=== PATIENT | male | born 1960 | race American Indian/Alaskan Native ===

== ENCOUNTER → 2020-09-10 | Outpatient (CLI) | payer BC ==
[~2020-09-10] MED LIST: ACYCLOVIR800 MG PO; AMOCLA875 PO; ARTIFICIAL TEAR15 M2 OP; CLOT10 MT; DEXA1L PO; GINGER ROOT550 MG PO; IMBRUVICA280 MG PO; LOPE2C PO; Loratadine10 MG PO; PENVK500 PO; PROBIOTIC; Prednisone10 MG PO; SIRO1 PO; TURMERIC500 M2 PO
[2020-09-12 15:42] LABS: CORONAVIRUS (COVID19) CSH-NRL Negative (Negative)
== END | disposition home or self-care (01) ==
LOC: LAB SHORT 11:11
PROVIDERS: Chiropractor
DX: B34.9 Viral infection, unspecified (principal); Z20.828 Contact with and (suspected) exposure to other viral communicable diseases
CPT/HCPCS: U0003

== ENCOUNTER 2022-04-15 10:07 | Inpatient (IN) | payer BC ==
[~2022-04-15] VITALS: Ht 162.6 cm; Wt 60.6 kg
[2022-04-15 10:33] LABS: Hematocrit 30.3 % (37.0-53.0); Hemoglobin 9.3 g/dL (13.5-17.5); Mean Corpuscular HGB 22.7 pg (26.0-34.0); Mean Corpuscular HGB Conc 30.7 g/dL (31.5-36.5); Mean Corpuscular Volume 74 fL (80-100); Mean Platelet Volume 10.3 fL (9.1-12.4); NRBC ABSOLUTE 0.18 K/mm3 (0.00-0.02); NRBC Auto 0.9 /100 WBC (0.0-0.2); Platelet Count 177 K/mm3 (150-400); RDW Coefficient Variation 21.2 % (11.7-14.2); RDW Standard Deviation 53.6 fL (35.1-46.3); White Blood Cell Count 20.01 K/mm3 (4.00-11.30)
[2022-04-15 11:03] LABS: BAND PERCENT MAN 51 % (0-8); BASOPHILS PERCENT MAN 0 % (0-2); EOSINOPHILS PERCENT MAN 0 % (0-6); LYMPHOCYTES PERCENT MAN 2 % (21-46); MONOCYTES PERCENT MAN 2 % (4-13); MYELOCYTE PERCENT MAN 1 % (0-0); SEG NEUTROPHILS PERCENT MAN 44 % (41-73); TOTAL CELLS COUNTED 100
[2022-04-15 11:18] LABS: Influenza A, PCR NEGATIVE (NEGATIVE); Influenza B, PCR NEGATIVE (NEGATIVE); Resp Syncytial Virus, PCR NEGATIVE (NEGATIVE); SARS-Cov-2 (COVID-19) PCR, MMC NEGATIVE (NEGATIVE)
[2022-04-15 11:20] LABS: Albumin, Blood 2.1 g/dL (3.4-5.0); Albumin/Globulin Ratio 0.7 (0.8-1.8); Bilirubin, Total 0.6 mg/dL (0.1-1.0); Bun/Creatinine Ratio 13.1 (12.0-20.0); Calcium, Blood 8.6 mg/dL (8.5-10.1); Creatinine, Blood 2.14 mg/dL (0.60-1.20); Globulin, Blood 3.1 g/dL (2.2-4.0); Potassium, Blood 4.1 mmol/L (3.5-5.5); Total Protein, Blood 5.2 g/dL (6.4-8.2)
[2022-04-15] MEDS ORDERED: SULFAMETHOXAZO1 EAC1 PO (12:16)
[2022-04-15] MEDS ORDERED: IMBRUVICA420 MG PO (12:16)
[2022-04-15] MEDS ORDERED: Prednisone2.5 MG PO (12:17)
[2022-04-15 12:18] LABS: Source, Urine Foley catheter
[2022-04-15 12:23] LABS: Appearance, Urine Clear (Clear); Bilirubin, Urine Neg (Neg); Blood, Urine 2+ (Neg); Color, Urine Yellow (P-Yellow); Glucose Qualitative, Urine Neg (Neg); Ketones, Urine Neg (Neg); Leukocyte Esterase, Urine 1+ (Neg); Nitrite, Urine Neg (Neg); Protein, Urine 2+ (Neg); Specific Gravity, Urine 1.015 (1.003-1.022); Urobilinogen, Urine NORM (Normal)
[2022-04-15 12:30] LABS: Amorphous Light (0-Heavy); Bacteria Few /hpf; Red Blood Cells, Urine 0-2 /hpf (0-2); Squamous Epithelial Cells Rare /hpf (Few); White Blood Cells, Urine 0-2 /hpf (0-5)
[2022-04-15 13:08] LABS: Base Excess Venous -9.8 mmol/L; Bicarbonate Venous 16.9 mmol/L (24.0-30.0); PCO2 Venous 40.9 mmHg (38-42); pH Blood Venous 7.24 (7.34-7.37)
[2022-04-15 13:34] LABS: Percent Saturation 3.4 % (20.0-50.0)
--- NOTE | 2022-04-15 14:35 | NUR ---
ADMIT PT ARRIVED TO ICU 13 VIA BED AT 1330. PT IS ALERT AND ORIENTED. PT ON BIPAP 09/16, FIO2 45%. PT HYPOTENSIVE. LEVOPHED INFUSING THROUGH PERIPHERAL IV AT 5 MCG/MIN. PT COMPLAINS OF ANXIETY RELATED TO BIPAP AT THIS TIME. LEE IN PLACE WITH CLEAR YELLOW OUTPUT NOTED. WILL CONTINUE TO MONITOR.
--- NOTE | 2022-04-15 17:49 | NUR ---
SHIFT SUMMARY PT REMAINS ALERT AND ORIENTED WHEN AWAKE. PT WITH PERIODS OF FORGETFULNESS AT TIMES. ANSWERS MOST QUESTIONS APPROPRIATELY. PT ON 10L O2 NC AT THIS TIME. SPO2 >90%. PICC PLACED TO LASHELL DUE TO CONTINUED NEED FOR LEVOPHED. LEVOPHED INFUSING AT 6 MCG/MIN AT THIS TIME. LEE REMAINS IN PLACE WITH CLEAR YELLOW OUTPUT NOTED. PT TURNS SELF IN BED INDEPENDENTLY. PT WITH OCCASIONAL NONPRODUCTIVE COUGH. PT DENIES PAIN OR SOB AT THIS TIME. DR JONES DISCUSSED CODE STATUS WITH PT THIS EVENING. PT ELECTS TO BE LIMITED CODE WITH INTUBATION ONLY. WILL CONTINUE TO MONITOR AND REPORT OFF TO ONCOMING RN.
[2022-04-15 18:07] LABS: Hematocrit 31.1 % (37.0-53.0); Hemoglobin 9.5 g/dL (13.5-17.5)
--- NOTE | 2022-04-15 19:15 | NUR ---
PT REPORT RECEIVED, SAFETY CHECK COMPLETED, ASSUMED PT CARE.
[2022-04-15 21:15] LABS: C DIFFICILE DNA NEGATIVE (Negative)
[2022-04-16 03:58] LABS: Hematocrit 30.6 % (37.0-53.0); Hemoglobin 9.6 g/dL (13.5-17.5); Mean Corpuscular HGB 22.8 pg (26.0-34.0); Mean Corpuscular HGB Conc 31.4 g/dL (31.5-36.5); Mean Corpuscular Volume 73 fL (80-100); NRBC ABSOLUTE 0.13 K/mm3 (0.00-0.02); NRBC Auto 0.3 /100 WBC (0.0-0.2); Platelet Count 152 K/mm3 (150-400); RDW Coefficient Variation 20.9 % (11.7-14.2); RDW Standard Deviation 52.3 fL (35.1-46.3); Red Blood Cell Count 4.21 M/mm3 (4.30-5.90); White Blood Cell Count 39.75 K/mm3 (4.00-11.30)
[2022-04-16 04:00] LABS: Mean Platelet Volume 10.7 fL (9.1-12.4)
[2022-04-16 04:16] LABS: Albumin/Globulin Ratio 0.6 (0.8-1.8); Bilirubin, Total 0.5 mg/dL (0.1-1.0); Bun/Creatinine Ratio 19.3 (12.0-20.0); Calcium, Blood 8.4 mg/dL (8.5-10.1); Creatinine, Blood 1.19 mg/dL (0.60-1.20); Globulin, Blood 3.3 g/dL (2.2-4.0); Magnesium, Blood 1.9 mg/dL (1.6-2.4); Potassium, Blood 4.1 mmol/L (3.5-5.5); Total Protein, Blood 5.3 g/dL (6.4-8.2)
[2022-04-16 04:34] LABS: BAND PERCENT MAN 31 % (0-8); BASOPHILS PERCENT MAN 0 % (0-2); EOSINOPHILS PERCENT MAN 0 % (0-6); LYMPHOCYTES ABSOLUTE MAN 0.39 K/mm3 (0.84-5.20); LYMPHOCYTES PERCENT MAN 1 % (21-46); METAMYELOCYTE ABSOLUTE MAN 0.39 K/mm3 (0.00-0.00); METAMYELOCYTE PERCENT MAN 1 % (0-0); MONOCYTES ABSOLUTE MAN 0.79 K/mm3 (0.16-1.47); MONOCYTES PERCENT MAN 2 % (4-13); MYELOCYTE ABSOLUTE MAN 0.39 K/mm3 (0.00-0.00); MYELOCYTE PERCENT MAN 1 % (0-0); NEUTROPHILS ABSOLUTE MAN 37.76 K/mm3 (1.96-9.15); SEG NEUTROPHILS PERCENT MAN 64 % (41-73); TOTAL CELLS COUNTED 100
--- NOTE | 2022-04-16 06:30 | NUR ---
SHIFT SUMMARY: PT DROSY BUT ALERT TO VOICE AND ABLE TO FOLLOW COMMANDS AND TURN HIMSELF THROUGH OUT THE NIGHT. PT'S SPO2 INITIALLY STABLE ON 8 LPM VIA STANDARD NC ON SAFETY CHECK, 02 FLOW RATE WAS DECREASED TO 6 LPM AND HUMIDAFIER WAS ADDED TO NC. PT HAD VERY GOOD URINE OUT PUT FROM THE CATHETER OVER NIGHT AND BS IMPROVED OVER NIGHT TO CLEAR/DIMINISHED THROUGHOUT. O2 ULTIMATELY DECREASED TO 4LPM AND SPO2 REMAINED STABLE AT THAT FLOW RATE. PT ABLE TO STAND AT BEDSIDE AND IS STRONG ON HIS FEET. LEVOPHED INCREASED THROUGH OUT THE NIGHT TO 10 MCG/MINUTE DUE TO HYPOTENSION WHILE THE PT IS SLEEPING. PT DROWSY THROUGH THE NIGHT BUT ABLE TO WAKE TO VOICE, FOLLOW COMMANDS AND TURN HIMSELF IN BED. 3200 ML OUT OF THE CATHETER OVER NIGHT.
--- NOTE | 2022-04-16 07:39 | NUR ---
report from Pierce foote rn, no distress with patient, patietn sleeping, easily wakes to touch, alert and oriented x4, call light with in reach, patient ready to eat breakfast
--- NOTE | 2022-04-16 18:03 | NUR ---
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
--- NOTE | 2022-04-16 19:15 | NUR ---
PT REPORT RECEIVED, SAFETY CHECK COMPLETED, ASSUMED PT CARE. PT IS AAOX4 AND STATES THAT HE IS OVER ALL FEELING MUCH BETTER TODAY. LEVOPHED IS INFUSING AT 7 MCG/MINUTE.
[2022-04-17 03:37] LABS: Hematocrit 26.7 % (37.0-53.0); Hemoglobin 8.4 g/dL (13.5-17.5); Mean Corpuscular HGB 22.6 pg (26.0-34.0); Mean Corpuscular HGB Conc 31.5 g/dL (31.5-36.5); Mean Corpuscular Volume 72 fL (80-100); NRBC ABSOLUTE 0.16 K/mm3 (0.00-0.02); NRBC Auto 0.4 /100 WBC (0.0-0.2); Platelet Count 122 K/mm3 (150-400); RDW Coefficient Variation 20.7 % (11.7-14.2); Red Blood Cell Count 3.72 M/mm3 (4.30-5.90); White Blood Cell Count 41.14 K/mm3 (4.00-11.30)
[2022-04-17 03:51] LABS: Albumin, Blood 1.8 g/dL (3.4-5.0); Anion Gap 5 mmol/L (6-16); Blood Urea Nitrogen 26 mg/dL (8-24); Bun/Creatinine Ratio 25.5 (12.0-20.0); CO2, Blood 28 mmol/L (21-32); Chloride, Blood 110 mmol/L (98-108); Creatinine, Blood 1.02 mg/dL (0.60-1.20); Glomerular Filtration Rate 84 (60-); Glucose, Blood 109 mg/dL (70-99); Phosphorus, Blood 3.2 mg/dL (2.5-4.9); Potassium, Blood 3.1 mmol/L (3.5-5.5); Sodium, Blood 143 mmol/L (136-145)
--- NOTE | 2022-04-17 06:19 | NUR ---
SHIFT SUMMARY: PT ALERT AND ORIENTED X4 AND WHEN ASSLEEP HE IS ABLE TO WAKE TO VOICE. PT HAS BEEN ABLE TO SLEEP FOR THE MAJORITY OF THE NIGHT. LEVOPHED GRADUALLY DECREASED AND UTIMATLY PUT INTO STANDBY AROUND 0550. SPO2 REMAINS STABLE ON 4LPM VIAN NC. ORDERS RECEIVED FOR POTASSIUM REPLACEMENT. BP SLIGHTLY MORE SOFT WITHOUT LEVOPHED, BUT MAP STILL >65. GOOD URINE OUT PUT OVER NIGHT WITH 12OOML OUT OF THE LEE.
--- NOTE | 2022-04-17 10:52 | NUR ---
NO DISTRESS THIS AM, REPORT FROM PM RN SHERIDAN, DR PÉREZ AND DR POMPA ROUNDED ON PATIENT, REPORTED INCREASED WBC TO 41, DR PÉREZ TO MAKE ADJUSTMENTS, PATIENT PLEASANT AND COOPERATIVE, DENIES PAIN, DENIES N/V, CALL LIGHT WITH IN REACH, WILL HAVE PATIENT OOB IN SHOWER TODAY AND CHAIR
--- NOTE | 2022-04-17 11:58 | NUR ---
PATIENT SHOWERED, BACK TO ROOM IN CHAIR EATING LUNCH, PLEASANT TO CARE, CALL LIGHT WITH IN REACH
--- NOTE | 2022-04-17 16:10 | NUR ---
PATIENT RESTING IN BED, USED BSC, SMALL SMEAR OF STOOL, REPOSITIONS SELF WCTM
--- NOTE | 2022-04-17 17:34 | NUR ---
ALERT AND ORIENTED, PLEASANT AND COOPERATIVE, MAKES NEEDS KNOWN, CALL LIGHT WITH IN REACH, AMBULATES WITH STAND BY ASSIST, BSC WITH ASSIST, SMALL BM SMEAR TODAY. LS DIM BASES, CLEARS CONGESTION WITH A STRONG COUGH, SPUTUMN MODERATE, SATS 96% ON 2L O2 VIA NC, SBP 90<, MAP 65<, DENEIS CP, LEVOPHED OFF SINCE 04/17/22 AT 0500 AM. GOOD APPETITE FOR ALL MEALS, NO SWALLOWING DIFFICULTIES, DOES NOT HAVE HIS DENTURES, PREFERS SOFT FOODS, LEE TO GRAVITY, LASHELL PICC SL, L AC SL, WBC 41.1 TODAY, DR PÉREZ D/C VANCOMYCIN, PATIENT STILL GETTING ROCEPHIN, AZITHROMAX, AND ACYCLOVIR. OOB IN CHAIR EATING DINNER, CALL LIGHT WITH IN REACH, WILL RELAY TO PM COLLIN
--- NOTE | 2022-04-17 19:30 | NUR ---
PT REPORT RECIEVED, SAFETYU CHECK COMPLETED, ASSUMED PT CARE. PT AA&OX4 AND SITTING UP IN A TIANA AT BEDSIDE EATING SUPPER. PT DENIES COMPLAINT AT THIS TIME.
[2022-04-18 04:14] LABS: Hematocrit 28.5 % (37.0-53.0); Hemoglobin 8.8 g/dL (13.5-17.5); Mean Corpuscular HGB 22.5 pg (26.0-34.0); Mean Corpuscular HGB Conc 30.9 g/dL (31.5-36.5); Mean Corpuscular Volume 73 fL (80-100); NRBC ABSOLUTE 0.41 K/mm3 (0.00-0.02); NRBC Auto 1.3 /100 WBC (0.0-0.2); RDW Coefficient Variation 21.1 % (11.7-14.2); RDW Standard Deviation 52.7 fL (35.1-46.3); Red Blood Cell Count 3.91 M/mm3 (4.30-5.90); White Blood Cell Count 31.45 K/mm3 (4.00-11.30)
[2022-04-18 04:16] LABS: Mean Platelet Volume 10.9 fL (9.1-12.4); Platelet Count 133 K/mm3 (150-400)
[2022-04-18 04:38] LABS: BAND PERCENT MAN 3 % (0-8); BASOPHILS PERCENT MAN 0 % (0-2); EOSINOPHILS PERCENT MAN 0 % (0-6); LYMPHOCYTES ABSOLUTE MAN 0.94 K/mm3 (0.84-5.20); LYMPHOCYTES PERCENT MAN 3 % (21-46); MONOCYTES ABSOLUTE MAN 0.62 K/mm3 (0.16-1.47); MONOCYTES PERCENT MAN 2 % (4-13); NEUTROPHILS ABSOLUTE MAN 29.87 K/mm3 (1.96-9.15); SEG NEUTROPHILS PERCENT MAN 92 % (41-73); TOTAL CELLS COUNTED 100
[2022-04-18 04:42] LABS: Albumin, Blood 1.8 g/dL (3.4-5.0); Albumin/Globulin Ratio 0.5 (0.8-1.8); Bilirubin, Total 0.3 mg/dL (0.1-1.0); Bun/Creatinine Ratio 35.8 (12.0-20.0); Calcium, Blood 9.4 mg/dL (8.5-10.1); Creatinine, Blood 0.92 mg/dL (0.60-1.20); Globulin, Blood 3.5 g/dL (2.2-4.0); Magnesium, Blood 2.1 mg/dL (1.6-2.4); Phosphorus, Blood 3.2 mg/dL (2.5-4.9); Potassium, Blood 3.7 mmol/L (3.5-5.5); Total Protein, Blood 5.3 g/dL (6.4-8.2)
--- NOTE | 2022-04-18 06:51 | NUR ---
SHIFT SUMARY: PT AA&OX4 AND DENIES COMPLAINT. PT ABLE TO AMBULATE WITH VERY LITTLE ASSISTANCE. PT ABLT TOP SLEEP FOR MOST OF THE NIGHT AND HAS TOLLERATED O2 VIAN NC VERY WELL. PT HAS GOOD PO INTAKE AND HAS GOOD URINE OUT OUT PUT FROM THE CATHETER.
--- NOTE | 2022-04-18 09:02 | NUR ---
ASSUMPTION OF CARE RECEIVED REPORT FROM SHERIDAN POLANCO AT 0705, ASSUMED CARE OF PATIENT. PATIENT IN BED, A/O, DENIED DISCOMFORTS OR NEEDS. VITALS STABLE ON 4L 02 VIA NC. BREAKFAST TRAY PROVIDED, DR. POMPA ROUNDED TO ROOM WITH NO CHANGES TO CURRENT TREATMENT PLAN. ORDERS REVIEWED, WILL TREAT PRESCRIBED.
--- NOTE | 2022-04-18 18:02 | NUR ---
SHIFT SUMMARY NO ACUTE CHANGES THROUGH SHIFT. PATIENT TOLERATED SITTING UP IN CHAIR AND SHOWER. 02 DECREASED TO 2L VIA NC WITH SATS ABOVE 90%. MEDICATION CHANGES PER DR. PÉREZ. CURRENTLY A/O, TOLERATING DINNER AND MEALS, UTILIZING PHONE TO COMMUNICATE WITH FAMILY AND FRIENDS. VITALS STABLE. CALL LIGHT IN REACH. WILL REPORT TO ONCOMING RN.
--- NOTE | 2022-04-18 20:22 | NUR ---
PATIENT AWAKE SITTING UP IN CHAIR. VERBALIZED FEELING BETTER. ON 2L/NC WITH LUNG SOUNDS CRACKLES TO RIGHT LUNG. LEE IN PLACE DRAINING CLEAR YELLOW URINE. REQUEST TO CHANGE DIET TO MECHANICAL SOFT DUE TO NOT HAVING HIS DENTURES.
--- NOTE | 2022-04-18 22:35 | NUR ---
PATIENT WOKE HIMSELF UP COUGHING AND BIOX DROPPING DOWN TO 87% WHILE COUGHING. PATIENT ALSO C/O SLIGHT MARIEE. WHEN ATTEMPTING TO TAKE PO TYLENOL, APPEARS TO ASPIRATE GOOD STRONG COUGH ABLE TO SPIT OUT ENTIRE TYLENOL TAB. OXYGEN INCREASED TO 5L/NC. TYLENOL PO GIVEN CRUSHED AND IN PUDDING WITH HOB ELEVATED. PATIENT ABLE TO COUGH UP SMALL AMT OF WHITE TO LIGHT YELLOW THICK SPUTUM.
[2022-04-19 05:25] LABS: BASOPHILS ABSOLUTE AUTO 0.01 K/mm3 (0.00-0.23); BASOPHILS PERCENT AUTO 0 % (0-2); EOSINOPHILS PERCENT AUTO 0 % (0-6); Hematocrit 27.4 % (37.0-53.0); Hemoglobin 8.5 g/dL (13.5-17.5); IMMATURE GRAN ABSOLUTE AUTO 0.08 K/mm3 (0.00-0.10); IMMATURE GRAN PERCENT AUTO 1 % (0-1); LYMPHOCYTES ABSOLUTE AUTO 0.22 K/mm3 (0.84-5.20); LYMPHOCYTES PERCENT AUTO 2 % (21-46); MONOCYTES ABSOLUTE AUTO 0.34 K/mm3 (0.16-1.47); MONOCYTES PERCENT AUTO 3 % (4-13); Mean Corpuscular HGB 22.5 pg (26.0-34.0); Mean Corpuscular Volume 73 fL (80-100); NEUTROPHILS PERCENT AUTO 94 % (41-73); NRBC ABSOLUTE 0.48 K/mm3 (0.00-0.02); NRBC Auto 4.7 /100 WBC (0.0-0.2); Platelet Count 118 K/mm3 (150-400); RDW Coefficient Variation 20.8 % (11.7-14.2); RDW Standard Deviation 52.4 fL (35.1-46.3); Red Blood Cell Count 3.78 M/mm3 (4.30-5.90); White Blood Cell Count 10.25 K/mm3 (4.00-11.30)
[2022-04-19 05:26] LABS: Mean Platelet Volume 10.7 fL (9.1-12.4)
[2022-04-19 05:39] LABS: Bun/Creatinine Ratio 38.1 (12.0-20.0); Calcium, Blood 8.7 mg/dL (8.5-10.1); Creatinine, Blood 0.81 mg/dL (0.60-1.20); Potassium, Blood 3.5 mmol/L (3.5-5.5)
--- NOTE | 2022-04-19 07:00 | NUR ---
SUMMARY PATIENT AWAKE, UP IN CHAIR. JESUS HERNANDEZ'Kavya AT 0530 NO VOID AFTER REMOVING YET. PATIENT OXYGEN BACK TO 2L/NC WITH BIOX 96-98% ABLE TO PRODUCE THICK WHITE TO LIGHT YELLOW SPUTUM DURING THE NIGHT.
--- NOTE | 2022-04-19 08:00 | NUR ---
ASSUMED CARE / DR POMPA: REPORT RECEIVED FROM HANNAH Rider, COLLIN. ASSUMED CARE OF THIS PT AT APPROX 0700. ON ASSESSMENT, THE PT IS AWAKE, SITTING UP IN A RECLINER CHAIR. HE DENIES PAIN OR NEEDS AT THIS TIME, STS FEELING WELL. LS W/ FINE CRACKLES NOTED IN BASES, PT HAS OCCASIONAL COUGH & HAS BEEN ABLE TO EXPECTORATE SOME SPUTUM NOT VISUALIZED BY RN. HE IS CURRENTLY ON 2L NC W/ O2 SATS > 92%. MONITOR SHOWS SR W/ HR 70-80s, BP STABLE. NO GI COMPLAINTS, PT TOLERATING PO INTAKE WELL. LEE REMOVED AT APPROX 0600 BY MISSILE INSPECTOR PREFLIGHT RN, NO URINARY VOID SINCE THAT TIME. SKIN CONDITION W/ CHRONIC DISCOLORATION, R/T PRIOR CA TREATMENTS. PT IS ABLE TO REPOSITION SELF FOR COMFORT OR CALL FOR ASSISTANCE PRN. DR POMPA AT BEDSIDE THIS AM TO EVAL PT. HE HAS ALSO SPOKEN W/ THE PT's & PROVIDED HER W/ AN UPDATE AT THIS TIME. HE STS OKAY FOR THE PT TO BE MEDICAL STATUS W/ NO TELE, NO OTHER CHANGES AT THIS TIME. WILL CONTINUE TO MONITOR & UPDATE NEEDED. WILL CONTINUE TO MONITOR & UPDATE NEEDED.
--- NOTE | 2022-04-19 12:34 | NUR ---
UPDATE: THE PT HAS RECEIVED A CALL FROM AYAZ REN, AT THE HEALTH DEPT. 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 THIS RN HAS CONTACTED MINA Sharma, INFECTION TUB MENDER, REGARDING THIS & THE POSSIBLE NEED TO ISOLATE THIS PT. PER PROTOCOL, THE PT SHOULD ONLY BE ON STANDARD PRECAUTIONS AT THIS TIME, HE HAS RECEIVED MORE THAN 24 HRS OF ANTIBIOTIC THERAPY THAT HAS BEEN EFFECTIVE IN TREATING HIS PNA/ SEPSIS. THIS RN HAS ALSO CONTACTED DR POMPA TO NOTIFY HIM OF THIS & DETERMINE IF HE WOULD LIKE TO BEGIN ANY OTHER ABX THERAPY. HE STS THAT THE PT's ABX TREATMENT HAS BEEN SUFFICIENT THE PT IS RECOVERING & BACTEREMIA IMPROVING.
--- NOTE | 2022-04-19 13:10 | NUR ---
TRANSFER TO MEDICAL FLOOR: REPORT GIVEN TO COLLIN STACY TO ASSUME CARE. THE PT, CHART, MEDICATIONS & ALL BELONGINGS HAVE BEEN TRANSFERRED VIA WC TO ROOM 330 BY DELIA ANGELES, AT 1305. THE PT HAS SPOKEN TO HIS & MADE HER AWARE OF THE TRANSFER.
--- NOTE | 2022-04-19 13:59 | NUR ---
PATIENT TRANSFERED TO ROOM 330 AT 1305 TODAY. HE IS FEELING PRETTY GOOD. PATIENT ADMITTED WITH SEPSIS PNEUMONIA. STATES THAT HIS BREATHING IS MUCH BETTER WITH LESS SHORTNESS OF BREATH. LS - LEFT SIDE, SQUEEKS WITH INHALATION AND CRACKLES. RIGHT SIDE CRACKLES IN BASE. PATIENT REPORTS SOME ITCHING IN MOUTH WHERE GRAFT SITE WITH STEM CELLS HAPPENED. HEART IS IRREGULAR WITH SKIPPED BEATS EVERY 4-7 SECONDS. PATIENT DENIES CHEST PAIN. HE HAD A BM WHEN HE CAME TO THE MEDICAL FLOOR. ICU NURSE REPORTS THAT DEPARTMENT OF HEALTH CONTACTED THEM AND STATEDE THAT THE PATIENT HAD H-FLU. HE DOES NOT NEED ISOLATION AT THIS TIME PER INFECTION CONTROL BECAUSE HE HAS HAD IV ABX HERE OVER THE PAST DAYS. PATIENT IS CLEAR OF CANCER AT THIS TIME, BUT HISTORY OF FOLICULITIS LYMPHOMA. HE HAS SOME EDEMA IN LE, PITTING 2, NO PAIN REPORTED.
--- NOTE | 2022-04-19 18:35 | NUR ---
NO CHANGES OR CONCERN SINCE TRANSFER TO FLOOR. PLEASE SEE NURSING NOTE.
--- NOTE | 2022-04-20 04:54 | NUR ---
PT IS ALERT AND ORIENTED. NO COMPLAINTS OF PAIN. LUNG SOUNDS HAVE IMPROVED SINCE PRIOR ASSESSMENT. IV REMOVED IN LEFT ARM PER PATIENT REQUEST. PT HAS ADDITIONAL LINE IN RIGHT ARM. NO PRNS GIVEN.
--- NOTE | 2022-04-21 04:46 | NUR ---
SHIFT SUMMARY - NO ACUTE CHANGES THROUGHOUT THE NIGHT. PT IS AWAKE THIS AM, DENIES ANY REQUESTS. PT IS PLEASANT AND COOPERATIVE WITH CARE. 2L O2 ON VIA NC, HUMIDIFIED O2 THROUGHOUT THE NIGHT. PT DENIED SOB, HOWEVER REPORTED SOB WITH ACTIVITY. PT UP INDEPENDENTLY TO BRP LAST NOC - STABLE AMBULATION. PO FLUIDS AT BEDSIDE. CALL LIGHT WITHIN REACH. BED IN LOW POSITION. WILL CONTINUE TO MONITOR UNTIL AM SHIFT CHANGE.
[2022-04-21 05:47] LABS: BASOPHILS PERCENT AUTO 0 % (0-2); EOSINOPHILS PERCENT AUTO 0 % (0-6); Hematocrit 27.3 % (37.0-53.0); Hemoglobin 8.4 g/dL (13.5-17.5); IMMATURE GRAN ABSOLUTE AUTO 0.05 K/mm3 (0.00-0.10); IMMATURE GRAN PERCENT AUTO 1 % (0-1); LYMPHOCYTES ABSOLUTE AUTO 0.63 K/mm3 (0.84-5.20); LYMPHOCYTES PERCENT AUTO 11 % (21-46); MONOCYTES ABSOLUTE AUTO 0.46 K/mm3 (0.16-1.47); MONOCYTES PERCENT AUTO 8 % (4-13); Mean Corpuscular HGB 22.5 pg (26.0-34.0); Mean Corpuscular HGB Conc 30.8 g/dL (31.5-36.5); Mean Corpuscular Volume 73 fL (80-100); NEUTROPHILS ABSOLUTE AUTO 4.48 K/mm3 (1.96-9.15); NEUTROPHILS PERCENT AUTO 80 % (41-73); NRBC ABSOLUTE 0.04 K/mm3 (0.00-0.02); NRBC Auto 0.7 /100 WBC (0.0-0.2); Platelet Count 155 K/mm3 (150-400); RDW Coefficient Variation 20.8 % (11.7-14.2); RDW Standard Deviation 51.9 fL (35.1-46.3); Red Blood Cell Count 3.74 M/mm3 (4.30-5.90); White Blood Cell Count 5.62 K/mm3 (4.00-11.30)
[2022-04-21] MEDS ORDERED: CEFDINIR PO (12:47)
--- NOTE | 2022-04-21 16:23 | NUR ---
PT DISCHARGED WITH INSTRUCTION 1415, SENT HOME WITH BELONGINGS. CAME TO PICK PT UP. PLACED ON PORTABLE OXYGEN 2L.
== END 2022-04-21 14:12 | disposition home or self-care (01) | DRG 871 ==
LOC: ER 10:07 → ICUW 12:24 → MEDS 04-19 13:07
PROVIDERS: Emergency Medicine; Internal Medicine; Internal Medicine Critical Care Medicine; Nurse Practitioner Acute Care; ADMIT Hospitalist
PROC: 3E03329 Introduction of Other Anti-infective into Peripheral Vein, Percutaneous Approach (ICD-10-PCS; principal; 2022-04-15)
PROC: 3E033XZ Introduction of Vasopressor into Peripheral Vein, Percutaneous Approach (ICD-10-PCS; 2022-04-15)
PROC: 5A09357 Assistance with Respiratory Ventilation, Less than 24 Consecutive Hours, Continuous Positive Airway Pressure (ICD-10-PCS; 2022-04-15)
PROC: 02H633Z Insertion of Infusion Device into Right Atrium, Percutaneous Approach (ICD-10-PCS; 2022-04-16)
DX: A41.3 Sepsis due to Hemophilus influenzae (principal); J14 Pneumonia due to Hemophilus influenzae; J96.01 Acute respiratory failure with hypoxia; R65.21 Severe sepsis with septic shock; C82.90 Follicular lymphoma, unspecified, unspecified site; N17.9 Acute kidney failure, unspecified; Z94.84 Stem cells transplant status; D64.9 Anemia, unspecified; Z20.822 Contact with and (suspected) exposure to COVID-19; E78.5 Hyperlipidemia, unspecified; Z79.2 Long term (current) use of antibiotics; Z79.52 Long term (current) use of systemic steroids; Z79.899 Other long term (current) drug therapy; Z98.890 Other specified postprocedural states; Z87.891 Personal history of nicotine dependence
CPT/HCPCS: 0241U; 36415; 36569; 51702; 71045; 80048; 80053; 80069; 81001; 82330; 82728; 82803; 83540; 83550; 83605; 83735; 83880; 84100; 84145; 84484; 85007; 85014; 85018; 85025; 85027; 87040; 87077; 87086; 87185; 87186; 87449; 87493; 93005; 93010; 93306; 94660; 94664; 94760; 94761; 96365-59; 96367-59; 96375-59; 99291-25; A9270; C1751; C9113; J0456; J0696; J1644; J1720; J2060; J3370; J3480; J7030; J7050; J7060; J7120; J7512

== ENCOUNTER 2022-10-10 21:42 | Emergency (ER) | payer BC, MEDICARE ==
[~2022-10-10] VITALS: Ht 162.6 cm; Wt 64.4 kg
[~2022-10-10 21:42] MED LIST changes: +CEFDINIR PO; +IMBRUVICA420 MG PO; +Prednisone2.5 MG PO; +SULFAMETHOXAZO1 EAC1 PO
[2022-10-10 22:27] LABS: BASOPHILS ABSOLUTE AUTO 0.02 K/mm3 (0.00-0.23); BASOPHILS PERCENT AUTO 0 % (0-2); EOSINOPHILS ABSOLUTE AUTO 0.03 K/mm3 (0.00-0.68); EOSINOPHILS PERCENT AUTO 0 % (0-6); Hematocrit 30.8 % (37.0-53.0); Hemoglobin 10.1 g/dL (13.5-17.5); IMMATURE GRAN ABSOLUTE AUTO 0.05 K/mm3 (0.00-0.10); IMMATURE GRAN PERCENT AUTO 1 % (0-1); LYMPHOCYTES ABSOLUTE AUTO 1.17 K/mm3 (0.84-5.20); LYMPHOCYTES PERCENT AUTO 11 % (21-46); MONOCYTES ABSOLUTE AUTO 0.59 K/mm3 (0.16-1.47); MONOCYTES PERCENT AUTO 6 % (4-13); Mean Corpuscular HGB Conc 32.8 g/dL (31.5-36.5); Mean Corpuscular Volume 91 fL (80-100); NEUTROPHILS ABSOLUTE AUTO 8.42 K/mm3 (1.96-9.15); NEUTROPHILS PERCENT AUTO 82 % (41-73); NRBC ABSOLUTE 0.12 K/mm3 (0.00-0.02); NRBC Auto 1.2 /100 WBC (0.0-0.2); Platelet Count 265 K/mm3 (150-400); RDW Coefficient Variation 20.2 % (11.7-14.2); RDW Standard Deviation 68.4 fL (35.1-46.3); Red Blood Cell Count 3.37 M/mm3 (4.30-5.90); White Blood Cell Count 10.28 K/mm3 (4.00-11.30)
[2022-10-10 22:47] LABS: Albumin, Blood 3.3 g/dL (3.4-5.0); Albumin/Globulin Ratio 1.1 (0.8-1.8); Bilirubin, Total 0.5 mg/dL (0.1-1.0); Bun/Creatinine Ratio 19.8 (12.0-20.0); Calcium, Blood 8.7 mg/dL (8.5-10.1); Creatinine, Blood 1.16 mg/dL (0.60-1.20); Globulin, Blood 3.1 g/dL (2.2-4.0); Potassium, Blood 3.8 mmol/L (3.5-5.5); Total Protein, Blood 6.4 g/dL (6.4-8.2)
[2022-10-10 22:57] LABS: Influenza A, PCR NEGATIVE (NEGATIVE); Influenza B, PCR NEGATIVE (NEGATIVE); Resp Syncytial Virus, PCR NEGATIVE (NEGATIVE); SARS-Cov-2 (COVID-19) PCR, MMC NEGATIVE (NEGATIVE)
[2022-10-10 23:54] LABS: Source, Urine Voided
[2022-10-10 23:58] LABS: Bilirubin, Urine Neg (Neg); Blood, Urine 2+ (Neg); Glucose Qualitative, Urine Neg (Neg); Ketones, Urine Neg (Neg); Leukocyte Esterase, Urine Neg (Neg); Nitrite, Urine Neg (Neg); Protein, Urine Neg (Neg); Specific Gravity, Urine 1.005 (1.003-1.022); Urobilinogen, Urine NORM (Normal); pH, Urine 6.5 (5.0-8.0)
[2022-10-11 00:10] LABS: Appearance, Urine Clear (Clear); Bacteria Not Seen /hpf; Color, Urine Yellow (P-Yellow); Red Blood Cells, Urine 0-2 /hpf (0-2); Squamous Epithelial Cells Not Seen /hpf (Few); White Blood Cells, Urine Not Seen /hpf (0-5)
== END 2022-10-11 00:37 | disposition home or self-care (01) ==
LOC: ER 21:42
PROVIDERS: Emergency Medicine; Student in an Organized Health Care Education/Training Program
DX: R50.9 Fever, unspecified (principal); Z79.899 Other long term (current) drug therapy; Z20.822 Contact with and (suspected) exposure to COVID-19
CPT/HCPCS: 0241U; 36415; 71046; 80053; 81001; 85025; 99284-25

== ENCOUNTER 2022-11-22 07:25 | Inpatient (IN) | payer BC, MEDICARE ==
[~2022-11-22] VITALS: Ht 172.7 cm; Wt 66.4 kg
[2022-11-22 07:48] LABS: BASOPHILS ABSOLUTE AUTO 0.02 K/mm3 (0.00-0.23); BASOPHILS PERCENT AUTO 0 % (0-2); Hematocrit 38.1 % (37.0-53.0); Hemoglobin 11.8 g/dL (13.5-17.5); LYMPHOCYTES ABSOLUTE AUTO 1.01 K/mm3 (0.84-5.20); LYMPHOCYTES PERCENT AUTO 23 % (21-46); MONOCYTES PERCENT AUTO 5 % (4-13); Mean Corpuscular HGB 29.4 pg (26.0-34.0); Mean Corpuscular Volume 95 fL (80-100); Mean Platelet Volume 9.1 fL (9.1-12.4); NRBC ABSOLUTE 0.12 K/mm3 (0.00-0.02); NRBC Auto 2.7 /100 WBC (0.0-0.2); Platelet Count 207 K/mm3 (150-400); RDW Coefficient Variation 19.7 % (11.7-14.2); RDW Standard Deviation 68.6 fL (35.1-46.3); Red Blood Cell Count 4.02 M/mm3 (4.30-5.90); White Blood Cell Count 4.48 K/mm3 (4.00-11.30)
[2022-11-22 07:49] LABS: EOSINOPHILS ABSOLUTE AUTO 0.01 K/mm3 (0.00-0.68); EOSINOPHILS PERCENT AUTO 0 % (0-6); IMMATURE GRAN ABSOLUTE AUTO 0.03 K/mm3 (0.00-0.10); IMMATURE GRAN PERCENT AUTO 1 % (0-1); NEUTROPHILS ABSOLUTE AUTO 3.21 K/mm3 (1.96-9.15); NEUTROPHILS PERCENT AUTO 72 % (41-73)
[2022-11-22 07:50] LABS: Base Excess Venous -10.5 mmol/L; Bicarbonate Venous 17.1 mmol/L (24.0-30.0); PCO2 Venous 30.8 mmHg (38-42); pH Blood Venous 7.32 (7.34-7.37)
[2022-11-22] MEDS ORDERED: SULFAMETHOXAZO1 EAC1 PO (08:03)
[2022-11-22] MEDS ORDERED: PRED1 PO (08:04)
[2022-11-22] MEDS ORDERED: JAKAFI10 MG PO (08:04)
[2022-11-22] MEDS ORDERED: PRAVASTATIN SOD20 MG PO (08:04)
[2022-11-22 08:08] LABS: Albumin/Globulin Ratio 0.8 (0.8-1.8); Bilirubin, Total 0.5 mg/dL (0.1-1.0); Bun/Creatinine Ratio 17.5 (12.0-20.0); Calcium, Blood 8.7 mg/dL (8.5-10.1); Creatinine, Blood 1.43 mg/dL (0.60-1.20); Globulin, Blood 3.9 g/dL (2.2-4.0); Potassium, Blood 3.8 mmol/L (3.5-5.5); Total Protein, Blood 6.9 g/dL (6.4-8.2)
[2022-11-22 08:44] LABS: Influenza A, PCR NEGATIVE (NEGATIVE); Influenza B, PCR NEGATIVE (NEGATIVE); Resp Syncytial Virus, PCR NEGATIVE (NEGATIVE); SARS-Cov-2 (COVID-19) PCR, MMC NEGATIVE (NEGATIVE)
[2022-11-22 12:19] LABS: Hematocrit 27.1 % (37.0-53.0); Hemoglobin 8.8 g/dL (13.5-17.5)
[2022-11-22 13:33] LABS: Adenovirus F 40/41 Not Detected (NOT DETECT); Astrovirus Not Detected (NOT DETECT); Campylobacter Sp Not Detected (NOT DETECT); Cryptosporidium Not Detected (NOT DETECT); Cyclospora Cayetanensis Not Detected (NOT DETECT); E. Coli O157 Not Detected (NOT DETECT); Entamoeba Histolytica Not Detected (NOT DETECT); Enteroaggregative E. coli-EAEC Not Detected (NOT DETECT); Enteropathogenic E. coli-EPEC Not Detected (NOT DETECT); Enterotoxigenic E. coli-ETEC Not Detected (NOT DETECT); Giardia Lamblia Not Detected (NOT DETECT); Norovirus GI/GII Not Detected (NOT DETECT); Plesiomonas Shigelloides Not Detected (NOT DETECT); Rotavirus A Not Detected (NOT DETECT); Salmonella Sp Not Detected (NOT DETECT); Sapovirus Not Detected (NOT DETECT); Shiga Toxin-prod E. coli-STEC Not Detected (NOT DETECT); Shigella/Enteroin E. coli-EIEC Not Detected (NOT DETECT); Vibrio Cholerae Not Detected (NOT DETECT); Vibrio Sp Not Detected (NOT DETECT); Yersinia Enterocolitica Not Detected (NOT DETECT)
[2022-11-22 15:05] LABS: Source, Urine Clean Catch
[2022-11-22 15:12] LABS: Appearance, Urine Clear (Clear); Bilirubin, Urine Neg (Neg); Blood, Urine 3+ (Neg); Color, Urine Yellow (P-Yellow); Glucose Qualitative, Urine Neg (Neg); Ketones, Urine Neg (Neg); Leukocyte Esterase, Urine Neg (Neg); Nitrite, Urine Neg (Neg); Protein, Urine 3+ (Neg); Specific Gravity, Urine 1.005 (1.003-1.022); Urobilinogen, Urine NORM (Normal)
[2022-11-22 15:25] LABS: Bacteria Few /hpf; Squamous Epithelial Cells Not Seen /hpf (Few)
--- NOTE | 2022-11-22 16:47 | NUR ---
ICU ADMISSION / SHIFT SUMMARY: REPORT RECEIVED FROM KG Rider RN IN ED. PT ARRIVED TO ICU-15 AT APPROX 1005. ON ARRIVAL, THE PT IS VISIBLY DYSPNEIC, BUT ABLE TO ANSWER QUESTIONS & SPEAK IN SHORT SENTENCES. HE IS ON 8L NC AT THAT TIME W/ O2 SATS VARIABLE 85-92%, DESATS W/ PROLONGED CONVERSATION. ST NOTED ON MONITOR W/ HR 110s, HYPOTENSIVE W/ SBP 90s, STABLE. SHORTLY AFTER ARRIVAL, THE PT's RESPIRATORY STATUS HAS BEGUN TO WORSEN W/ THE INCREASING DYSPNEA & DECREASING O2 SATS. THE PT WAS REMOVED FROM CPAP FOR C/O NAUSEA & DRY HEAVING, MEDS PER EMAR GIVEN ONCE PATENT PIV SITE OBTAINED. NAUSEA RESOLVED & PT PLACED BACK ON CPAP W/ DYSPNEA & DESATS CONTINUING. HANNAH RT, CALLED TO BEDSIDE BY THIS RN & PT THEN PLACED ON BIPAP W/ SETTINGS: 14/8, 45% FIO2 & BACKUP RATE 15. O2 SATS & WORK OF BREATHING NOW IMPROVING. DURING THIS TIME, THE PT HAS HAD AN 18/8 POWERGLIDE PLACED TO HIS LASHELL. THIS RN HAS CONTACTED DR LARRY, WHO HAS COME TO BEDSIDE & WOULD LIKE DR PÉREZ CONSULTED REPAIRER HAIRSPRING FOR THIS PT. THIS RN HAS NOTIFIED DR PÉREZ. THE PT's BP HAS BEGUN TO DECLINE AT THIS TIME W/ SBP 70s & MAP < 65. THE PT IS AWAKE, A&O DURING THIS TIME & DENIES DIZZINESS OR LIGHTHEADEDNESS. THIS RN VERIFIES BP READING BY CHECKING ON ANOTHER EXTREMITY. DR PÉREZ TO BEDSIDE, ORDERS NS MAINTAINENCE IVFs BE DISCONTINUED, LR BOLUS INITIATED. ONCE COMPLETE, BICARB BOLUS ORDERED FOLLOWED BY BICARD MAINTAINENCE DRIP. PICC LINE PLACED BY DIGITAL FORENSIC ANALYST, KP Mariee, AT SAME SITE OF POWERGLIDE, VERIFIED BY DR PÉREZ W/ CXR. LEVOPHED INITIATED FOR CONTINUED HYPOTENSION DESPITE FLUID BOLUSES. CURRENTLY, PT REMAINS A&O, HE IS COOPERATIVE W/ CARE. LS ARE DIM T/O, PT ON 4L NC W/ O2 SATS > 92%. TOLERATED BIPAP WELL FOR APPROX 3.5 HRS & WAS ABLE TO RECOVER WELL. MONITOR SHOWS ST W/ HR IMPROVING, NOW 110-120s. HYPOTENSION PERSISTANT W/ SBP 90s ON LEVOPHED DRIP AT 6 MCG/MIN. PT DENIES ANY FURTHER C/O NAUSEA, IS TOLERATING ICE CHIPS WELL. BLOOD NOTED IN STL THIS AFTERNOON, DR PÉREZ AWARE. REPEAT H&H DRAWN AT 1600, WILL NOTIFY PROVIDER OF RESULTS. PT VOIDS URINE W/O DIFFICULTY USING URINAL OR BEDPAN, UA SENT PER ORDERS. SKIN CONDITION OVERALL FRAGILE, Q2H REPOSITIONING TO MAINTAIN SKIN INTEGRITY. LARGE AREA OF SCARRING/ GRAFTING TO PT's SCALP & FACE IS UNCHANGED. WILL CONTINUE TO MONITOR & REPORT OFF TO ONCOMING RN.
[2022-11-22 17:03] LABS: Hematocrit 26.9 % (37.0-53.0); Hemoglobin 8.8 g/dL (13.5-17.5)
[2022-11-22] MEDS ORDERED: ACYC800 PO (18:02)
[2022-11-22] MEDS ORDERED: PENVK500 PO (18:04)
[2022-11-23 03:47] LABS: Hematocrit 28.9 % (37.0-53.0); Hemoglobin 9.6 g/dL (13.5-17.5); Mean Corpuscular HGB 30.3 pg (26.0-34.0); Mean Corpuscular HGB Conc 33.2 g/dL (31.5-36.5); Mean Corpuscular Volume 91 fL (80-100); Mean Platelet Volume 9.7 fL (9.1-12.4); NRBC ABSOLUTE 0.17 K/mm3 (0.00-0.02); NRBC Auto 1.3 /100 WBC (0.0-0.2); Platelet Count 170 K/mm3 (150-400); RDW Coefficient Variation 18.9 % (11.7-14.2); RDW Standard Deviation 63.2 fL (35.1-46.3); Red Blood Cell Count 3.17 M/mm3 (4.30-5.90); White Blood Cell Count 12.61 K/mm3 (4.00-11.30)
[2022-11-23 04:05] LABS: Albumin/Globulin Ratio 0.6 (0.8-1.8); Bilirubin, Total 0.2 mg/dL (0.1-1.0); Calcium, Blood 7.3 mg/dL (8.5-10.1); Creatinine, Blood 1.31 mg/dL (0.60-1.20); Globulin, Blood 3.2 g/dL (2.2-4.0); Magnesium, Blood 1.6 mg/dL (1.6-2.4); Phosphorus, Blood 2.2 mg/dL (2.5-4.9); Potassium, Blood 2.7 mmol/L (3.5-5.5); Total Protein, Blood 5.2 g/dL (6.4-8.2)
--- NOTE | 2022-11-23 04:58 | NUR ---
SHIFT SUMMARY: Patient still requiring pressors but blood pressure improving slowly. Remains on 5L nasal cannula. He had some dyspnea and anxiety episodes overnight which resolved quickly. Still tachycardic, HR in the 110-120 range. No complaints of pain. Large volume of urine output. K was 2.7 this morning, Dr. Marie notified and replacement orders received.
[2022-11-23 05:39] LABS: BAND PERCENT MAN 30 % (0-8); BASOPHILS PERCENT MAN 0 % (0-2); EOSINOPHILS PERCENT MAN 0 % (0-6); LYMPHOCYTES ABSOLUTE MAN 0.25 K/mm3 (0.84-5.20); LYMPHOCYTES PERCENT MAN 2 % (21-46); METAMYELOCYTE PERCENT MAN 8 % (0-0); MONOCYTES ABSOLUTE MAN 0.12 K/mm3 (0.16-1.47); MONOCYTES PERCENT MAN 1 % (4-13); MYELOCYTE ABSOLUTE MAN 0.12 K/mm3 (0.00-0.00); MYELOCYTE PERCENT MAN 1 % (0-0); NEUTROPHILS ABSOLUTE MAN 11.09 K/mm3 (1.96-9.15); SEG NEUTROPHILS PERCENT MAN 58 % (41-73); TOTAL CELLS COUNTED 100
--- NOTE | 2022-11-23 09:30 | NUR ---
ASSUMED CARE / DR JONES: REPORT RECEIVED FROM COLLIN WINTER. ASSUMED CARE OF THIS PT AT APPROX 0700. ON ASSESSMENT, THE PT IS AWAKE, SITTING UP IN THE RECLINER CHAIR & DENIES PAIN OR NEEDS. 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 THE PT IS ALSO CONCERNED W/ RECEIVING LEVAQUIN, HE HAS EXPERIENCED TENDON RUPTURE FROM [place] BEFORE. LS ARE DIM, CRACKLES NOTED ON DEEP INSPIRATION. PT ON 2L NC W/ O2 SATS > 92% ON AVG. MONITOR SHOWS ST W/ PAC/ PVCs, HR 100-110s. HYPOTENSIVE W/ LEVOPHED INFUSING. PT HAS NO GI COMPLAINTS, TOLERATING PO INTAKE WELL. VOIDS URINE W/O DIFFICULTY USING URINAL. SKIN OVERALL INTACT, Q2H REPOSITIONING TO MAINTAIN SKIN INTEGRITY. DR JONES AT BEDSIDE THIS AM TO EVAL PT. HE WOULD LIKE TO BEGIN MIDODRINE & ATTEMPT TO TITRATE LEVOPHED OFF. DISCUSSED PT's CONCERN W/ ORDERED LEVAQUIN, MEDICATION DISCONTINUED & THIS RN HAS ADDED LEVAQUIN TO ALLERGIES LIST. PROVIDER HAS BEEN NOTIFIED OF PT's CONCERN REGARDING RESUMING HOME MEDICATIONS WELL. MAINTAINENCE IVFs DISCONTINUED & CT W/O CONTRAST OF CHEST ORDERED. PT OKAY TO HAVE A REGULAR DIET BEGINNING AT LUNCH TIME. NO OTHER CHANGES AT THIS TIME. WILL CONTINUE TO MONITOR & UPDATE NEEDED.
--- NOTE | 2022-11-23 18:27 | NUR ---
SHIFT SUMMARY: NO ACUTE CHANGES THIS SHIFT. PT REMAINS A&O, PLEASANT & COOPERATIVE. HE HAS SPENT MOST OF THE DAY SITTING UP IN THE CHAIR. HE CONTINUES TO DENY PAIN THROUGHOUT THIS SHIFT. PT ON 2L NC W/ O2 SATS > 92%. MONITOR SHOWS ST W/ HR 100-110s. HYPOTENSIVE W/ LEVOPHED INFUSING AT 3 MCG/MIN. DENIES DIZZINESS OR LIGHTHEADEDNESS - SEE VS. TOLERATING PO INTAKE WELL IN SMALL AMNTS. VOIDS W/O DIFFICULTY USING URINAL OR BSC. NEW SCROTAL & PENILE SWELLING NOTED, DISCUSSED POSITION CHANGES R/T PREVENTING WORSENING OF DEPENDENT EDEMA. SKIN CONDITION OVERALL INTACT, Q2H REPOSITIONING TO MAINTAIN SKIN INTEGRITY. PT's BUTTOCKS ON PILLOWS WHILE SEATING IN RECLINER CHAIR. WILL CONTINUE TO MONITOR & REPORT OFF TO ONCOMING RN.
[2022-11-24 05:24] LABS: Hematocrit 27.8 % (37.0-53.0); Hemoglobin 9.2 g/dL (13.5-17.5); Mean Corpuscular HGB 30.1 pg (26.0-34.0); Mean Corpuscular HGB Conc 33.1 g/dL (31.5-36.5); Mean Corpuscular Volume 91 fL (80-100); Mean Platelet Volume 10.7 fL (9.1-12.4); NRBC ABSOLUTE 0.21 K/mm3 (0.00-0.02); NRBC Auto 0.9 /100 WBC (0.0-0.2); Platelet Count 146 K/mm3 (150-400); RDW Coefficient Variation 19.4 % (11.7-14.2); RDW Standard Deviation 64.1 fL (35.1-46.3); Red Blood Cell Count 3.06 M/mm3 (4.30-5.90); White Blood Cell Count 23.25 K/mm3 (4.00-11.30)
[2022-11-24 05:45] LABS: Bun/Creatinine Ratio 23.3 (12.0-20.0); Calcium, Blood 7.8 mg/dL (8.5-10.1); Creatinine, Blood 1.16 mg/dL (0.60-1.20); Phosphorus, Blood 3.7 mg/dL (2.5-4.9)
--- NOTE | 2022-11-24 06:02 | NUR ---
SHIFT SUMMARY: Patient remained in the chair all night, slept on and off. Up to commode twice. He desats to the mid 80s with activity, however he is maintaining sats in 90s on 2L NC at rest. No complaints of shortness of breath. Able to wean levophed off as of 0530 this AM, MAP remains above 65 with systolic BP in the 80s. HR trending down, now mostly sinus rhythm in the 90s. He did have a temperature of 100.4F during my initial assessment relieved with 1 dose of tylenol, afebrile the rest of the shift.
--- NOTE | 2022-11-24 07:49 | NUR ---
Assumed care for pt at 0700. He is currently sitting in the bedside recliner comfrotably. Levophed gtt turned off at 0500 (11/24/22). He is A&Ox4, GCS 15, x1 assist when ambulating between chair or bedside commode, though he does desat quickly. Heart rate between NSR and Sinus Tach. PICC in R upper arm. Has been off his anti-rejection medications for the past few days.
[2022-11-24 08:04] LABS: BAND PERCENT MAN 14 % (0-8); BASOPHILS PERCENT MAN 0 % (0-2); EOSINOPHILS PERCENT MAN 0 % (0-6); LYMPHOCYTES ABSOLUTE MAN 0.23 K/mm3 (0.84-5.20); LYMPHOCYTES PERCENT MAN 1 % (21-46); METAMYELOCYTE ABSOLUTE MAN 0.69 K/mm3 (0.00-0.00); METAMYELOCYTE PERCENT MAN 3 % (0-0); MONOCYTES ABSOLUTE MAN 0.23 K/mm3 (0.16-1.47); MONOCYTES PERCENT MAN 1 % (4-13); NEUTROPHILS ABSOLUTE MAN 22.08 K/mm3 (1.96-9.15); SEG NEUTROPHILS PERCENT MAN 81 % (41-73); TOTAL CELLS COUNTED 100
--- NOTE | 2022-11-24 18:31 | NUR ---
Pt downgraded to PCU status this afternoon. Pt still needs sputum culture, though this evening he began to have productive sputum, sample cup at bedside. Pt remains on 2 lpm o2 via NC. Has tolerated x1 assist to chair and bedside commode. Plan is to restart pt home medication, the anti-rejection medication Jakafi 10 mg BID, pharamcy has already verified and returned medication, in pt med box in room. PICC line remains in R upper arm.
[2022-11-25 04:52] LABS: Hematocrit 26.7 % (37.0-53.0); Hemoglobin 8.7 g/dL (13.5-17.5); Mean Corpuscular HGB Conc 32.6 g/dL (31.5-36.5); Mean Corpuscular Volume 92 fL (80-100); Mean Platelet Volume 11.6 fL (9.1-12.4); NRBC ABSOLUTE 0.26 K/mm3 (0.00-0.02); NRBC Auto 1.1 /100 WBC (0.0-0.2); Platelet Count 105 K/mm3 (150-400); RDW Coefficient Variation 19.3 % (11.7-14.2); RDW Standard Deviation 64.6 fL (35.1-46.3); White Blood Cell Count 23.36 K/mm3 (4.00-11.30)
[2022-11-25 05:14] LABS: Magnesium, Blood 2.3 mg/dL (1.6-2.4)
[2022-11-25 05:15] LABS: Bun/Creatinine Ratio 39.1 (12.0-20.0); Calcium, Blood 8.4 mg/dL (8.5-10.1); Creatinine, Blood 1.1 mg/dL (0.60-1.20); Phosphorus, Blood 2.8 mg/dL (2.5-4.9); Potassium, Blood 3.3 mmol/L (3.5-5.5)
--- NOTE | 2022-11-25 06:43 | NUR ---
SHIFT SUMMARY: NO ACUTE CHANGES OVER NIGHT. PT REMAINS A&O X 4, AND VERY PLEASANT. PT COOPERATIVE WITH CARE; PT STAND-BY ASSIST WITH TRANSFERS TO HELP MANAGE CORDS. PT SLEPT IN RECLINER FOR THE ENTIRE NIGHT AND WAS IN AND OUT OF SLEEP. PT HAS 500 URINE OUTPUT THIS SHIFT AND 2 LOOSE, BOWEL MOVEMENTS. VSS THROUGHOUT THE NIGHT. WILL CONTINUE TO MONITOR UNTIL ONCOMING RN ARRIVES.
--- NOTE | 2022-11-25 09:00 | NUR ---
Assumed care for pt at 0700. He remains on 2 lpm o2 via NC w/ marked SANCHEZ when ambulating. He spent majority of the night in the bedsdie recliner, which he preferred. Pt remains A&Ox4 w/ a productive cough and telles sputum, no fevers. Reports adequate appetite and eating his meals pureed is a personal preference. Pt is currently PCU status.
--- NOTE | 2022-11-25 13:00 | NUR ---
Spoke w/ Dr. Michaud. Pt notifed this RN that over the past year he had intermittently nebulized hydrogen peroxide and colloidal silver when he was feeling SOB. He noted a trend where this treatment would often lead to a hospitalization. For example, he adminstered x2 of these home nebs on Tuesday11/21/22. Pt advised he would not continue this course of his own treatment, this RN agreed this was likely the best course of action. Dr. Michaud had no additional orders.
--- NOTE | 2022-11-25 16:15 | NUR ---
Called report to Aracelis POLANCO for room 363. Advised pt had an upcoming dose of Zosyn and his personal medication, the Jakafi, would be sent w/ pt. Pt just returned to his room in the ICU from the shower. Pt remains on 2 lpm o2 via NC. Pt will be taken to new room bylyn Rodriguez CNA in WC and w/ all his personal effects including ipad, iphone and apple watch, and all accompanying chargers.
--- NOTE | 2022-11-25 17:32 | NUR ---
SHIFT SUMMARY/TRANSFER PATIENT TRANSFERED FROM ICU AT 1615. PATIENT SETTLED INTO ROOM. PATIENT ORIENTED TO CALL LIGHT AND TV CONTROL. PATIENT DENIES PAIN, NAUSEA, AND SHORTNESS OF BREATH AT REST. PATIENT REPORTS SHORTNESS OF BREATH WITH ACTIVITY. PATIENT ON 2L VIA N/C, MAINTAINING SATS ABOVE 90%. PATIENT DOES DESAT WITH ACTIVITY, RECOVERS WELL. PATIENT IS A&OX4. 2RN SKIN CHECK COMPLETE. PATIENT HAS PICC TO [facility], PATENT AND DRAWS. PATIENT IS EATING AND DRINKING WELL. PATIENT IS A SBA TO THE BS. PATIENT IS PLEASANT AND COOPERATIVE WITH CARE.
[2022-11-25] MEDS ORDERED: ISTALOL2.5 M1 BOTHEYES (22:09)
[2022-11-25] MEDS ORDERED: OCUFLOX511 BOTHEARS (22:10)
[2022-11-25] MEDS ORDERED: LOTEPREDNOL ETAB5 ML BOTHEYES (22:10)
[2022-11-25] MEDS ORDERED: PRED5 PO (22:12)
[2022-11-26 05:16] LABS: Hematocrit 25.2 % (37.0-53.0); Hemoglobin 8.2 g/dL (13.5-17.5); Mean Corpuscular HGB 29.8 pg (26.0-34.0); Mean Corpuscular HGB Conc 32.5 g/dL (31.5-36.5); Mean Corpuscular Volume 92 fL (80-100); Mean Platelet Volume 10.7 fL (9.1-12.4); NRBC ABSOLUTE 0.13 K/mm3 (0.00-0.02); NRBC Auto 1.8 /100 WBC (0.0-0.2); Platelet Count 91 K/mm3 (150-400); RDW Coefficient Variation 19.3 % (11.7-14.2); RDW Standard Deviation 64.3 fL (35.1-46.3); Red Blood Cell Count 2.75 M/mm3 (4.30-5.90); White Blood Cell Count 7.33 K/mm3 (4.00-11.30)
[2022-11-26 05:43] LABS: Bun/Creatinine Ratio 47.8 (12.0-20.0); Calcium, Blood 8.7 mg/dL (8.5-10.1); Creatinine, Blood 1.15 mg/dL (0.60-1.20); Potassium, Blood 3.2 mmol/L (3.5-5.5)
[2022-11-26 05:46] LABS: BASOPHILS PERCENT MAN 0 % (0-2); EOSINOPHILS PERCENT MAN 0 % (0-6); LYMPHOCYTES ABSOLUTE MAN 0.14 K/mm3 (0.84-5.20); LYMPHOCYTES PERCENT MAN 2 % (21-46); METAMYELOCYTE ABSOLUTE MAN 0.07 K/mm3 (0.00-0.00); METAMYELOCYTE PERCENT MAN 1 % (0-0); MONOCYTES ABSOLUTE MAN 0.36 K/mm3 (0.16-1.47); MONOCYTES PERCENT MAN 5 % (4-13); NEUTROPHILS ABSOLUTE MAN 6.74 K/mm3 (1.96-9.15); SEG NEUTROPHILS PERCENT MAN 92 % (41-73); TOTAL CELLS COUNTED 100
--- NOTE | 2022-11-26 06:44 | NUR ---
PATIENT ALERT AND ORIENTED, 2L NC, DESATS WITH ACTIVITY, NO TELE, PUREED DIET PER PATIENTS REQUEST DUE TO MOUTH SENSITIVITY, LASHELL PICC, INDEPENDENT, PT/OT RECOMMENDING HOME HEALTH, SPUTUM + FOR JOSE, POTASSIUM REPLACED THIS AM WITH 40 MEQ PO, NO EVENTS OVERNIGHT
--- NOTE | 2022-11-27 05:42 | NUR ---
PATIENT ALERT AND ORIENTED, SLEPT WELL DURING SHIFT, NO EVENTS OVERNIGHT
[2022-11-27 10:04] LABS: BASOPHILS ABSOLUTE AUTO 0.01 K/mm3 (0.00-0.23); BASOPHILS PERCENT AUTO 0 % (0-2); EOSINOPHILS ABSOLUTE AUTO 0.03 K/mm3 (0.00-0.68); EOSINOPHILS PERCENT AUTO 1 % (0-6); Hematocrit 31.8 % (37.0-53.0); Hemoglobin 10.2 g/dL (13.5-17.5); IMMATURE GRAN ABSOLUTE AUTO 0.07 K/mm3 (0.00-0.10); IMMATURE GRAN PERCENT AUTO 2 % (0-1); LYMPHOCYTES ABSOLUTE AUTO 0.66 K/mm3 (0.84-5.20); LYMPHOCYTES PERCENT AUTO 15 % (21-46); MONOCYTES ABSOLUTE AUTO 0.33 K/mm3 (0.16-1.47); MONOCYTES PERCENT AUTO 8 % (4-13); Mean Corpuscular HGB 29.6 pg (26.0-34.0); Mean Corpuscular HGB Conc 32.1 g/dL (31.5-36.5); Mean Corpuscular Volume 92 fL (80-100); Mean Platelet Volume 10.7 fL (9.1-12.4); NEUTROPHILS ABSOLUTE AUTO 3.24 K/mm3 (1.96-9.15); NEUTROPHILS PERCENT AUTO 75 % (41-73); NRBC ABSOLUTE 0.06 K/mm3 (0.00-0.02); NRBC Auto 1.4 /100 WBC (0.0-0.2); Platelet Count 100 K/mm3 (150-400); RDW Coefficient Variation 19.5 % (11.7-14.2); RDW Standard Deviation 66.3 fL (35.1-46.3); Red Blood Cell Count 3.45 M/mm3 (4.30-5.90); White Blood Cell Count 4.34 K/mm3 (4.00-11.30)
[2022-11-27 10:21] LABS: Bun/Creatinine Ratio 39.8 (12.0-20.0); Calcium, Blood 9.1 mg/dL (8.5-10.1); Creatinine, Blood 1.18 mg/dL (0.60-1.20); Potassium, Blood 3.3 mmol/L (3.5-5.5)
--- NOTE | 2022-11-27 14:11 | NUR ---
PATIENT AMBULATED WITH PT, NO DISTRESS, SATS 90% ON RA
--- NOTE | 2022-11-27 18:48 | NUR ---
ALERT AND ORIENTED, MAKES NEEDS KNOWN, CALL LIGHT WITH IN REACH, AMBULATED IN HALLS, STAND BY ASSIST, CIGARETTE FILTER INSPECTOR WORKING ON PLACEMENT, CALL LIGHT WITH IN REACH. WILL RELAY TO PM RN
--- NOTE | 2022-11-28 04:49 | NUR ---
PATIENT ALERT AND ORIENTED, ROOM AIR, INDEPENDENT, LASHELL PICC, SLEPT THROUGH SHIFT
[2022-11-28 05:14] LABS: BASOPHILS PERCENT AUTO 0 % (0-2); EOSINOPHILS ABSOLUTE AUTO 0.01 K/mm3 (0.00-0.68); EOSINOPHILS PERCENT AUTO 0 % (0-6); Hematocrit 24.7 % (37.0-53.0); Hemoglobin 8.1 g/dL (13.5-17.5); IMMATURE GRAN ABSOLUTE AUTO 0.11 K/mm3 (0.00-0.10); IMMATURE GRAN PERCENT AUTO 3 % (0-1); LYMPHOCYTES ABSOLUTE AUTO 0.72 K/mm3 (0.84-5.20); LYMPHOCYTES PERCENT AUTO 17 % (21-46); MONOCYTES ABSOLUTE AUTO 0.38 K/mm3 (0.16-1.47); MONOCYTES PERCENT AUTO 9 % (4-13); Mean Corpuscular HGB Conc 32.8 g/dL (31.5-36.5); Mean Corpuscular Volume 92 fL (80-100); Mean Platelet Volume 10.6 fL (9.1-12.4); NEUTROPHILS ABSOLUTE AUTO 3.12 K/mm3 (1.96-9.15); NEUTROPHILS PERCENT AUTO 72 % (41-73); NRBC ABSOLUTE 0.05 K/mm3 (0.00-0.02); NRBC Auto 1.2 /100 WBC (0.0-0.2); Platelet Count 89 K/mm3 (150-400); RDW Coefficient Variation 19.5 % (11.7-14.2); RDW Standard Deviation 64.6 fL (35.1-46.3); White Blood Cell Count 4.34 K/mm3 (4.00-11.30)
[2022-11-28 05:39] LABS: Bun/Creatinine Ratio 34.2 (12.0-20.0); Calcium, Blood 8.8 mg/dL (8.5-10.1); Creatinine, Blood 1.17 mg/dL (0.60-1.20); Potassium, Blood 3.5 mmol/L (3.5-5.5)
--- NOTE | 2022-11-28 17:46 | NUR ---
NO ACUTE CHANGES, MAKES NEEDS KNOWN, CASE MANAGMENT TO WORK ON SNF VS REHAB PLACEMENT, HOME O2 EVAL DONE TODAY, PATIENT DID NOT QUALIFY FOR HOME OXYGEN. FAMILY-SON AND MOTHER VISITED TODAY. CALL LIGHT WITH IN REACH
--- NOTE | 2022-11-29 04:53 | NUR ---
PATIENT ALERT AND ORIENTED, ROOM AIR, NO TELE, PUREED DIET PER PT REQUEST, LASHELL PICC DRAWS, INDEPENDENT, PT/OT ON CASE, NO EVENTS OVERNIGHT
[2022-11-29 05:20] LABS: Calcium, Blood 8.5 mg/dL (8.5-10.1); Creatinine, Blood 1.15 mg/dL (0.60-1.20); Potassium, Blood 3.4 mmol/L (3.5-5.5)
--- NOTE | 2022-11-29 16:55 | NUR ---
SHIFT SUMMARY PATIENT IS ALERT AND ORIENTED 3-4. PATIENT HAS HAD NO ACUTE EVENTS THIS SHIFT. VITAL SIGNS REVIEWED. PATIENT HAS HAD LOW BLOOD PRESSURE THIS SHIFT. ORDERED MIDODRINE GIVEN. BLOOD PRESSURE HAS IMPROVED. PATIENT HAS HAD NO COMPLAINTS OF PAIN, NAUSEA, SOB OR VOMITTING THIS SHIFT. BED IN LOCKED AND LOWEST POSITION. CALL LIGHT IN PLACE.
--- NOTE | 2022-11-30 04:50 | NUR ---
DEVULCANIZER HEAD SUMMARY VSS. BP WNL, UP FROM LOW LEVELS IN THE AM. TOLERATING IV ANTIBIOTICS WELL. LUNG SOUNDS SOMEWHAT DIMINISHED TO AUSCULTAION. DENIED PAIN AND STATED NEUROPATHY UNCHANGED. HAS BEEN RESTING QUIETLY WITH FEW INTERRUPTIONS, WAS UP TO COMMODE EARLIER TO VOID AND HAVE LARGE BM. VERBAL RESPONSE ATTENTIVE TO QUESTIONS ASKED. CALL LIGHT IN HELLEN. WILL CONTINUE TO MONITOR.
--- NOTE | 2022-12-01 05:05 | NUR ---
INSURANCE RISK ANALYST SUMMARY VSS. HAS BEEN RESTING QUIETLY WITH FEW INTERUPTIONS THIS SHIFT. AWAKENED FOR IV ANTIBIOTICS. UP AD BRENDA. DENIED PAIN AND NO CHANGE WITH NEUROPATHY. PLEASANT ATTITUDE. LUNG SOUNDS LESS DIMINISHED PER AUSCULTATION. CALL LIGHT IN REACH. WILL CONTINUE TO MONITOR
[2022-12-01] MEDS ORDERED: SPIR25 PO (13:16)
[2022-12-01] MEDS ORDERED: GUAI600T33 PO (13:17)
[2022-12-01] MEDS ORDERED: AMOCLA500 PO (13:17)
== END 2022-12-01 15:21 | disposition home or self-care (01) | DRG 871 ==
LOC: ER 07:25 → MEDS 08:50 → ICUW 08:50 → MEDS 08:50 → ICUW 10:04 → MEDS 11-25 16:15
PROVIDERS: Emergency Medicine; Internal Medicine; Internal Medicine Critical Care Medicine; ADMIT Internal Medicine
PROC: 3E03329 Introduction of Other Anti-infective into Peripheral Vein, Percutaneous Approach (ICD-10-PCS; principal; 2022-11-22)
PROC: 3E033XZ Introduction of Vasopressor into Peripheral Vein, Percutaneous Approach (ICD-10-PCS; 2022-11-22)
PROC: 02H633Z Insertion of Infusion Device into Right Atrium, Percutaneous Approach (ICD-10-PCS; 2022-11-22)
PROC: 4A133R1 Monitoring of Arterial Saturation, Peripheral, Percutaneous Approach (ICD-10-PCS; 2022-11-22)
PROC: 5A09357 Assistance with Respiratory Ventilation, Less than 24 Consecutive Hours, Continuous Positive Airway Pressure (ICD-10-PCS; 2022-11-22)
DX: A41.9 Sepsis, unspecified organism (principal); J18.9 Pneumonia, unspecified organism; J96.01 Acute respiratory failure with hypoxia; R65.21 Severe sepsis with septic shock; N17.9 Acute kidney failure, unspecified; E87.20 Acidosis, unspecified; Z94.84 Stem cells transplant status; C82.90 Follicular lymphoma, unspecified, unspecified site; E87.0 Hyperosmolality and hypernatremia; Z20.822 Contact with and (suspected) exposure to COVID-19; E87.6 Hypokalemia; E83.39 Other disorders of phosphorus metabolism; E86.0 Dehydration; E78.5 Hyperlipidemia, unspecified; Z92.21 Personal history of antineoplastic chemotherapy; Z87.01 Personal history of pneumonia (recurrent); Z79.69 Long term (current) use of other immunomodulators and immunosuppressants; Z79.52 Long term (current) use of systemic steroids; Z79.2 Long term (current) use of antibiotics; Z79.899 Other long term (current) drug therapy
CPT/HCPCS: 0241U; 36415; 36569; 71045; 71250; 80048; 80053; 81001; 82330; 82803; 83605; 83735; 83880; 84100; 84295; 84484; 85014; 85018; 85025; 85027; 87040; 87070; 87205; 87507; 93005; 93010; 93306; 94640; 94660; 94664; 94760; 94762; 96361; 96374; 96375; 97110; 97116; 97162; 97166; 97530; 97535; 99285-25; A9270; C1751; J0456; J0696; J1650; J1720; J1940; J1956; J2405; J2543; J3480; J7030; J7050; J7060; J7070; J7120; J7512

== ENCOUNTER → 2024-09-24 | Outpatient (CLI) | payer BC, MEDICARE ==
[~2024-09-24] MED LIST changes: +ACYC800 PO; +AMOCLA500 PO; +GUAI600T33 PO; +ISTALOL2.5 M1 BOTHEYES; +JAKAFI10 MG PO; +LOTEPREDNOL ETAB5 ML BOTHEYES; +OCUFLOX511 BOTHEARS; +PRAVASTATIN SOD20 MG PO; +PRED1 PO; +PRED5 PO; +SPIR25 PO
[2024-09-24 17:35] LABS: BASOPHILS ABSOLUTE AUTO 0.01 K/mm3 (0.00-0.23); BASOPHILS PERCENT AUTO 0 % (0-2); EOSINOPHILS PERCENT AUTO 0 % (0-6); Hematocrit 38.2 % (37.0-53.0); IMMATURE GRAN ABSOLUTE AUTO 0.05 K/mm3 (0.00-0.10); IMMATURE GRAN PERCENT AUTO 1 % (0-1); LYMPHOCYTES ABSOLUTE AUTO 1.04 K/mm3 (0.84-5.20); LYMPHOCYTES PERCENT AUTO 14 % (21-46); MONOCYTES PERCENT AUTO 5 % (4-13); Mean Corpuscular HGB 32.3 pg (26.0-34.0); Mean Corpuscular Volume 95 fL (80-100); Mean Platelet Volume 8.9 fL (9.1-12.4); NEUTROPHILS ABSOLUTE AUTO 6.02 K/mm3 (1.96-9.15); NEUTROPHILS PERCENT AUTO 80 % (41-73); Platelet Count 387 K/mm3 (150-400); RDW Coefficient Variation 15.5 % (11.7-14.2); RDW Standard Deviation 54.3 fL (35.1-46.3); Red Blood Cell Count 4.02 M/mm3 (4.30-5.90); White Blood Cell Count 7.52 K/mm3 (4.00-11.30)
== END ==
LOC: LAB 17:32 → LAB SHORT 17:32
PROVIDERS: Physician Assistant
DX: R05.1 Acute cough (principal)
CPT/HCPCS: 85025